=== PATIENT | male | born 1975 | race Caucasian/White ===

== ENCOUNTER 2019-11-13 10:50 | Day surgery (SDC) ==
[~2019-11-13 10:50] MED LIST: ASPIRIN 325 MG TABLET PO ONE; DIAZEPAM 5 MG TABLET PO ONE; MAGNESIUM SULF RIDER 2 GM in PREMIX 1 EACH IV PRN; POTASSIUM CHLORIDE RIDER 10 MEQ in PREMIX 1 EACH IV PRN; diphenhydrAMINE CAP 25 MG CAPSULE PO ONE
[2019-11-13] MEDS ORDERED: ASPIRIN 325 MG TABLET ONE (11:41)
[2019-11-13] MEDS ORDERED: diphenhydrAMINE CAP 25 MG CAPSULE ONE ×2 (11:41→11:42)
[2019-11-13] MEDS ORDERED: DIAZEPAM 5 MG TABLET ONE (11:41)
[2019-11-13] MEDS: SODIUM CHLORIDE 0.9% 1,000 ML IV SCH (11:45)
[2019-11-13] MEDS ORDERED: LIDOCAINE 1% 20 ML VIAL ONE (13:14)
[2019-11-13] MEDS ORDERED: HEPARIN/NACL 0.9% 2 UNITS/ML 1,000 ML IV ONE (13:14)
[2019-11-13] MEDS ORDERED: MIDAZOLAM 2 MG/2 ML VIAL ONE ×2 (13:34→14:19)
[2019-11-13] MEDS ORDERED: fentaNYL 100 MCG/2 ML VIAL ONE ×2 (13:34→14:19)
[2019-11-13] MEDS ORDERED: BIVALIRUDIN 250 MG VIAL IV ONE (14:19)
[2019-11-13] MEDS ORDERED: HEPARIN/NACL 0.9% 2 UNITS/ML 500 ML IV ONE (14:31)
[2019-11-13] MEDS ORDERED: TICAGRELOR 90 MG TABLET ONE (14:44)
[2019-11-13] MEDS ORDERED: MORPHINE 4 MG/1 ML VIAL IV PRN (15:29)
[2019-11-13] MEDS ORDERED: ONDANSETRON 4 MG/2 ML VIAL IV PRN (15:29)
[2019-11-13] MEDS ORDERED: ACETAMINOPHEN 325 MG TABLET PO PRN (15:29)
[2019-11-13] MEDS ORDERED: ZALEPLON 5 MG CAPSULE PO PRN (15:29)
[2019-11-13] MEDS ORDERED: ACETAMINOPHEN/CODEINE 300-30 MG TABLET PO PRN (15:29)
[2019-11-13] MEDS ORDERED: MAGNESIUM HYDROXIDE SUSP 30 ML UDCUP PO PRN (16:52)
[2019-11-13] MEDS ORDERED: diphenhydrAMINE CAP 25 MG CAPSULE PO PRN (16:52)
[2019-11-13] MEDS ORDERED: ATORVASTATIN 40 MG TABLET PO SCH (21:00)
[2019-11-13] MEDS: FAMOTIDINE 20 MG TABLET PO SCH (21:41)
[2019-11-13] MEDS: TICAGRELOR 90 MG TABLET PO SCH (21:41)
[2019-11-13] MEDS: GABAPENTIN 600 MG TABLET PO SCH (21:41)
[2019-11-14] MEDS: SODIUM CHLORIDE 0.9% 1,000 ML IV SCH ×2 (00:44→08:54)
[2019-11-14 06:05] LABS: Basophils # 0.1 10*3/uL (0.0-0.2); Basophils % 0.6 % (0.0-0.8); Eosinophils # 0.1 10*3/uL (0.0-0.87); Eosinophils % 1.6 % (0.00-10.9); Hematocrit 47.9 VOL% (42.0-52.0); Hemoglobin 15.9 GM/DL (14.0-18.0); Immature Granulocytes % 0.5 %; Immature Granulocytes Absolute 0.04 #; Lymphocytes # 2.1 10*3/uL (1.4-4.0); Lymphocytes % 24.7 % (21.2-54.2); Mean Corpuscular HGB Conc 33.2 GM/DL (32-36); Mean Corpuscular Volume 99.2 FL (87-102); Mean Platelet Volume 9.7 FL (9.6-12.0); Monocytes % 12.6 % (1.7-12.7); Platelet Count 222 T/CUMM (130-400); Red Blood Count 4.83 MC/CUMM (3.8-5.5); Red Cell Distribution Width 13.1 % (9.3-17.3); White Blood Count 8.5 T/CUMM (4-12)
[2019-11-14 06:22] LABS: Calcium 8.9 MG/DL (8.5-10.1); Osmolality,Calculated 280.5 MOS/KG (273-304)
[2019-11-14 08:17] VITALS: BP 109/68
[2019-11-14] MEDS: FAMOTIDINE 20 MG TABLET PO SCH (08:53)
[2019-11-14] MEDS: GABAPENTIN 600 MG TABLET PO SCH (08:53)
[2019-11-14] MEDS: TICAGRELOR 90 MG TABLET PO SCH (08:53)
[2019-11-14] MEDS ORDERED: ASPIRIN EC 81 MG TABLET PO SCH (09:00)
[2019-11-14] MEDS ORDERED: PANTOPRAZOLE 40 MG TABLET PO SCH (09:00)
[2019-11-14] MEDS ORDERED: FENOFIBRATE 145 MG TABLET PO SCH (09:00)
[2019-11-14] MEDS ORDERED: ATORVASTATIN 80 MG TABLET PO SCH (09:02)
[2019-11-14] MEDS ORDERED: METOPROLOL SUCCINATE XL 25 MG TABLET PO SCH (09:03)
== END 2019-11-14 10:15 | disposition home or self-care (01) ==
LOC: N.CL 10:50 → N.TELEN 10:50 → N.CL 10:53 → N.TELEN 15:51 → N.CL 11-14 10:15
PROVIDERS: ATTEND Internal Medicine Cardiovascular Disease

== ENCOUNTER 2020-12-16 16:26 | Observation (INO) ==
[2020-12-16 17:08] LABS: Basophils # 0.1 10*3/uL (0.0-0.2); Basophils % 0.8 % (0.0-0.8); Eosinophils # 0.1 10*3/uL (0.0-0.87); Eosinophils % 1.5 % (0.00-10.9); Hematocrit 45.7 VOL% (42.0-52.0); Hemoglobin 15.8 GM/DL (14.0-18.0); Immature Granulocytes % 0.8 %; Immature Granulocytes Absolute 0.05 #; Lymphocytes % 32.2 % (21.2-54.2); Mean Corpuscular HGB Conc 34.6 GM/DL (32-36); Mean Corpuscular Volume 97.2 FL (87-102); Mean Platelet Volume 9.8 FL (9.6-12.0); Monocytes % 16.9 % (1.7-12.7); Neutrophils % 47.8 % (38.7-73.9); Platelet Count 222 T/CUMM (130-400); Red Cell Distribution Width 12.5 % (9.3-17.3); White Blood Count 6.2 T/CUMM (4-12)
[2020-12-16 17:29] LABS: Albumin 4.2 G/DL (3.4-5.0); Bilirubin,Total 0.7 MG/DL (0.20-1.00); Calcium 9.2 MG/DL (8.5-10.1); Osmolality,Calculated 278.4 MOS/KG (273-304); Potassium 3.9 MMOL/L (3.5-5.1); Total Protein 7.8 G/DL (6.4-8.2)
[2020-12-16 17:51] LABS: Lymphocytes 31 % (20-55); Platelet Estimate Adequate; Segmented Neutrophils 52 % (50-85); Total Cells Counted 100
[2020-12-16] MEDS ORDERED: GLUCAGON 1 MG VIAL IM PRN (18:56)
[2020-12-16] MEDS ORDERED: DEXTROSE 50% 25 GM/50 ML VIAL IV PRN (18:56)
[2020-12-16] MEDS ORDERED: ENOXAPARIN 40 MG/0.4 ML SYRINGE SUBCUT SCH (19:00)
[2020-12-16] MEDS ORDERED: ASPIRIN 325 MG TABLET PO STA (19:09)
[2020-12-16] MEDS ORDERED: ONDANSETRON 4 MG/2 ML VIAL IV STA (19:09)
[2020-12-16] MEDS ORDERED: MORPHINE 4 MG/1 ML VIAL IV STA (19:12)
[2020-12-16] MEDS ORDERED: TICAGRELOR 90 MG TABLET PO SCH (21:00)
[2020-12-16] MEDS ORDERED: ATORVASTATIN 80 MG TABLET PO SCH (21:00)
[2020-12-16] MEDS: GABAPENTIN 300 MG CAPSULE PO SCH (22:53)
[2020-12-16] MEDS: RANOLAZINE 500 MG TABLET PO SCH (22:53)
[2020-12-17 01:14] LABS: Basophils # 0.1 10*3/uL (0.0-0.2); Basophils % 0.9 % (0.0-0.8); Eosinophils # 0.1 10*3/uL (0.0-0.87); Eosinophils % 1.7 % (0.00-10.9); Hematocrit 44.4 VOL% (42.0-52.0); Hemoglobin 15.1 GM/DL (14.0-18.0); Immature Granulocytes % 0.8 %; Immature Granulocytes Absolute 0.05 #; Lymphocytes # 2.4 10*3/uL (1.4-4.0); Lymphocytes % 37.4 % (21.2-54.2); Mean Corpuscular Volume 99.3 FL (87-102); Mean Platelet Volume 10.1 FL (9.6-12.0); Monocytes % 15.2 % (1.7-12.7); Platelet Count 212 T/CUMM (130-400); Red Blood Count 4.47 MC/CUMM (3.8-5.5); Red Cell Distribution Width 12.6 % (9.3-17.3); White Blood Count 6.5 T/CUMM (4-12)
[2020-12-17 01:29] LABS: Calcium 9.2 MG/DL (8.5-10.1); Osmolality,Calculated 279.5 MOS/KG (273-304); Potassium 3.5 MMOL/L (3.5-5.1); Risk Ratio 3.67; Thyroid Stimulating Hormone 1.36 uIU/ml (0.358-3.74); VLDL Cholesterol 32.2 MG/DL
[2020-12-17] MEDS ORDERED: ASPIRIN EC 81 MG TABLET PO SCH (09:00)
[2020-12-17] MEDS ORDERED: CLOPIDOGREL 75 MG TABLET PO SCH (09:00)
[2020-12-17] MEDS ORDERED: PANTOPRAZOLE 40 MG TABLET PO SCH (09:00)
[2020-12-17] MEDS ORDERED: FENOFIBRATE 145 MG TABLET PO SCH (09:00)
[2020-12-17] MEDS ORDERED: ALBUTEROL 0.63 MG/3 ML NEB RESP TX PRN (09:11)
[2020-12-17] MEDS ORDERED: ALBUTEROL/IPRATROPIUM 3 ML NEB RESP TX PRN (09:11)
[2020-12-17] MEDS: GABAPENTIN 300 MG CAPSULE PO SCH (10:28)
[2020-12-17] MEDS: RANOLAZINE 500 MG TABLET PO SCH (10:29)
[2020-12-17 11:48] VITALS: BP 129/77
[2020-12-17] MEDS ORDERED: FAMOTIDINE 20 MG TABLET PO SCH (21:00)
[2020-12-18] MEDS ORDERED: amLODIPine 2.5 MG TABLET PO SCH (09:00)
== END 2020-12-17 12:36 | disposition home or self-care (01) ==
LOC: N.ED 16:26 → N.EDINP 16:26 → N.TELEN 22:04
PROVIDERS: ADMIT Internal Medicine Geriatric Medicine; ATTEND Internal Medicine Geriatric Medicine

== ENCOUNTER 2020-12-21 21:28 | Observation (INO) ==
[2020-12-21 22:05] LABS: Basophils # 0.1 10*3/uL (0.0-0.2); Basophils % 0.9 % (0.0-0.8); Eosinophils # 0.1 10*3/uL (0.0-0.87); Eosinophils % 1.6 % (0.00-10.9); Hematocrit 46.4 VOL% (42.0-52.0); Hemoglobin 15.9 GM/DL (14.0-18.0); Immature Granulocytes % 0.5 %; Immature Granulocytes Absolute 0.03 #; Lymphocytes # 1.9 10*3/uL (1.4-4.0); Lymphocytes % 29.3 % (21.2-54.2); Mean Corpuscular HGB Conc 34.3 GM/DL (32-36); Mean Corpuscular Volume 97.3 FL (87-102); Mean Platelet Volume 9.9 FL (9.6-12.0); Monocytes % 15.7 % (1.7-12.7); Platelet Count 228 T/CUMM (130-400); Red Blood Count 4.77 MC/CUMM (3.8-5.5); Red Cell Distribution Width 12.4 % (9.3-17.3); White Blood Count 6.4 T/CUMM (4-12)
[2020-12-21 22:18] LABS: INR 1.1; PT Patient Result 11.8 SECS (10.5-12.0); Partial Thromboplastin Time 29.1 SECS (23.9-33.8)
[2020-12-21 22:22] LABS: Bilirubin,Total 0.7 MG/DL (0.20-1.00); Calcium 8.8 MG/DL (8.5-10.1); Osmolality,Calculated 280.4 MOS/KG (273-304); Total Protein 7.5 G/DL (6.4-8.2)
[2020-12-21] MEDS ORDERED: ONDANSETRON 4 MG/2 ML VIAL IV ONE (22:57)
[2020-12-21] MEDS ORDERED: SODIUM CHLORIDE 0.9% 1,000 ML IV STA (22:57)
[2020-12-21] MEDS ORDERED: MORPHINE 2 MG/1 ML SYRINGE IV STA (22:57)
[2020-12-22 01:37] LABS: Eosinophils 1 % (0-10); Lymphocytes 43 % (20-55); Segmented Neutrophils 45 % (50-85); Total Cells Counted 100
[2020-12-22 01:39] LABS: Platelet Estimate Normal; Reactive Lymphocytes 1+
[2020-12-22] MEDS ORDERED: ACETAMINOPHEN 325 MG TABLET PO PRN (02:22)
[2020-12-22] MEDS ORDERED: DOCUSATE SODIUM 100 MG CAPSULE PO PRN (02:22)
[2020-12-22] MEDS ORDERED: DEXTROSE 50% 25 GM/50 ML VIAL IV PRN (02:22)
[2020-12-22] MEDS ORDERED: BISACODYL 5 MG TABLET PO PRN (02:22)
[2020-12-22] MEDS ORDERED: MORPHINE 2 MG/1 ML SYRINGE IV PRN (02:22)
[2020-12-22] MEDS ORDERED: ONDANSETRON 4 MG/2 ML VIAL IV PRN (02:22)
[2020-12-22] MEDS ORDERED: GLUCAGON 1 MG VIAL IM PRN (02:22)
[2020-12-22] MEDS ORDERED: hydrALAZINE 20 MG/1 ML VIAL IV PRN (02:39)
[2020-12-22 08:07] LABS: Basophils # 0.1 10*3/uL (0.0-0.2); Eosinophils # 0.1 10*3/uL (0.0-0.87); Eosinophils % 1.8 % (0.00-10.9); Hematocrit 43.9 VOL% (42.0-52.0); Hemoglobin 14.7 GM/DL (14.0-18.0); Immature Granulocytes % 0.7 %; Immature Granulocytes Absolute 0.05 #; Lymphocytes % 29.6 % (21.2-54.2); Mean Corpuscular HGB Conc 33.5 GM/DL (32-36); Mean Corpuscular Volume 99.1 FL (87-102); Mean Platelet Volume 9.8 FL (9.6-12.0); Monocytes % 15.1 % (1.7-12.7); Neutrophils % 51.8 % (38.7-73.9); Platelet Count 207 T/CUMM (130-400); Red Blood Count 4.43 MC/CUMM (3.8-5.5); Red Cell Distribution Width 12.6 % (9.3-17.3); White Blood Count 6.8 T/CUMM (4-12)
[2020-12-22 08:26] LABS: Osmolality,Calculated 283.3 MOS/KG (273-304)
[2020-12-22 08:33] VITALS: BP 134/79
[2020-12-22] MEDS: ENOXAPARIN 40 MG/0.4 ML SYRINGE SUBCUT SCH ×2 (08:51→08:53)
[2020-12-22] MEDS: ROSUVASTATIN 20 MG TABLET PO SCH ×2 (08:52→08:55)
[2020-12-22] MEDS ORDERED: ASPIRIN EC 81 MG TABLET PO SCH (09:00)
[2020-12-22] MEDS ORDERED: CLOPIDOGREL 75 MG TABLET PO SCH (09:00)
[2020-12-22] MEDS ORDERED: FENOFIBRATE 145 MG TABLET PO SCH (09:00)
[2020-12-22] MEDS ORDERED: amLODIPine 2.5 MG TABLET PO SCH (09:00)
[2020-12-22] MEDS ORDERED: RANOLAZINE 500 MG TABLET PO SCH (09:00)
[2020-12-22] MEDS ORDERED: PANTOPRAZOLE 40 MG TABLET PO SCH (09:00)
[2020-12-22] MEDS ORDERED: GABAPENTIN 600 MG TABLET PO SCH (09:00)
== END 2020-12-22 12:38 | disposition home or self-care (01) ==
LOC: N.ED 21:28 → N.EDINP 21:28 → N.TELES 12-22 02:58
PROVIDERS: ADMIT Internal Medicine Geriatric Medicine; ATTEND Internal Medicine Geriatric Medicine